=== PATIENT | female | born 1945 | race Caucasian/White ===

== ENCOUNTER 2017-06-13 04:42 | Inpatient (IN) | payer OTHER ==
[2017-05-16 13:52] VITALS: BMI 34.0
--- NOTE | 2017-05-16 14:25 | PAT Medication Instructions ---
Service Date May 16, 2017. Current Home Medication List Aspirin (Aspir-81), 1 TAB PO QAM B-Complex W/ Folic Acid (B Complex), 1 TAB PO QAM Biotin (Biotin), 1 CAP PO DAILY PRN for PRN Cholecalciferol (Vitamin D3), 1 TAB PO HS Citalopram Hydrobromide (Celexa), 1 TAB PO QAM Multivitamin (Multivitamin), 1 TAB PO HS Potassium Chloride (Micro-K Ext Rel), 10 MEQ PO HS Pravastatin (Pravachol ), 20 MG PO QPM Tramadol (Ultram), 50 MG PO Q6H PRN for Pain Trazodone Hcl (Trazodone), 100 MG PO HS Medication Instructions For Your Scheduled Surgery - Hold the following medications the morning of surgery: B-Complex W/ Folic Acid (B Complex), 1 TAB PO QAM Biotin (Biotin), 1 CAP PO DAILY PRN for PRN Citalopram Hydrobromide (Celexa), 1 TAB PO QAM - Take the following medications the morning of surgery with a sip of water: Aspirin (Aspir-81), 1 TAB PO QAM Tramadol (Ultram), 50 MG PO Q6H PRN for Pain (okay to take up to 4 hours prior to surgery if needed) - Take the following medications as scheduled the night before surgery: Trazodone Hcl (Trazodone), 100 MG PO HS Pravastatin (Pravachol ), 20 MG PO QPM Tramadol (Ultram), 50 MG PO Q6H PRN for Pain (if needed) Multivitamin (Multivitamin), 1 TAB PO HS Potassium Chloride (Micro-K Ext Rel), 10 MEQ PO HS Cholecalciferol (Vitamin D3), 1 TAB PO HS If you have any questions please call us at [phone] or [phone] or [phone]
[2017-05-16 14:55] LABS: BASO % 0.4 %; BASO ABS # 0.02 K/uL (0-0.2); EOS ABS # 0.22 K/uL (0-0.5); HEMATOCRIT 40.6 % (37-47); HEMOGLOBIN 13.8 g/dL (12.0-16.0); LYMPH % 31.2 %; LYMPH ABS # 1.73 K/uL (1.2-3.4); MEAN CELL VOLUME 87.3 fL (80-100); MEAN CORPUSCULAR HEMOGLOBIN 29.7 pg (25-34); MEAN PLATELET VOLUME 10.3 fL (7.4-10.4); MONO % 6.3 %; MONO ABS # 0.35 K/uL (0.11-0.59); NEUT % 58.1 %; NEUT ABS # 3.22 K/uL (1.4-6.5); PLATELET COUNT 223 K/uL (130-400); RED CELL DISTRIBUTION WIDTH CV 12.8 % (11.5-14.5); RED CELL DISTRIBUTION WIDTH SD 40.9 fL (36.4-46.3); WHITE BLOOD COUNT 5.54 K/uL (4.8-10.8)
[2017-05-16 15:04] LABS: PTT PATIENT 23.3 SECONDS (21.0-31.0)
--- NOTE | 2017-05-16 15:08 | DIAGNOSTIC IMAGING REPORT ---
CHEST 2 VIEWS ROUTINE CLINICAL HISTORY: Preoperative chest COMPARISON STUDY: No previous studies for comparison. FINDINGS: The cardiac and mediastinal contours are normal. There is no evidence of focal pulmonary consolidation. There is no evidence of failure. No pleural effusions are visualized.[ IMPRESSION: No active disease in the chest. Electronically signed by: Artie Rodriguez M.D. 05/16/2017 3:06 PM Dictated Date/Time: 05/16/2017 3:06 PM
[2017-05-16 16:54] LABS: ALBUMIN 3.6 gm/dl (3.4-5.0); CALCIUM 8.8 mg/dl (8.5-10.1); CREATININE 0.73 mg/dl (0.60-1.20); POTASSIUM 3.8 mmol/L (3.5-5.1)
--- NOTE | 2017-05-18 13:46 | HISTORY & PHYSICAL EXAMINATION ---
DATE OF ADMISSION: 06/13/2017 CHIEF COMPLAINT: Left knee pain. HISTORY OF PRESENT ILLNESS: Ethel is a 71-year-old female with a 3-year history of left knee pain. The patient rates her pain at 9/10. She has pain with her daily activities. She has limited standing and walking tolerance. Pain is worse with weightbearing. The patient has had injections, exercise program and tramadol and knee arthroscopy without relief. She has failed conservative treatment and is scheduled for a left knee replacement. PAST MEDICAL HISTORY: Hypercholesterolemia. She denies heart disease, diabetes or DVT. PAST SURGICAL HISTORY: Tubal ligation, left breast biopsy, knee arthroscopy, bladder sling, rotator cuff repair, right breast biopsy, cataract extraction and radiofrequency ablation. SOCIAL HISTORY: The patient denies alcohol or tobacco use. She quit smoking in 2004. She lives in a 1-story home. She is and retired. FAMILY HISTORY: Positive for DVT in her sister. MEDICATIONS: Citalopram 40 mg, pravastatin 20 mg, trazodone 100 mg, tramadol 50 mg, aspirin 81 mg, potassium, vitamin D 2000 units, super B complex 1 daily, vitamin, and Biotin 1000 mg. ALLERGIES: None. REVIEW OF SYSTEMS: See HPI. Ten other systems reviewed, all negative. PHYSICAL EXAMINATION: VITAL SIGNS: Height 5 feet 6 inches and weight 202 pounds. GENERAL: This is a well-developed and well-nourished female who is alert and oriented x3. Mood and affect are appropriate. HEENT: Normocephalic and atraumatic. Mucous membranes are moist and intact. NECK: Supple without lymphadenopathy. HEART: Regular rate and rhythm without murmurs, rubs or gallops. LUNGS: Clear to auscultation. She does have some mild wheezing bilaterally. ABDOMEN: Soft and nontender. Bowel sounds are equal and active. EXTREMITIES: No ecchymosis, redness or warmth. She has scars present from her arthroscopy. She has neutral alignment. Range of motion is from 0-120 degrees with +1 laxity. She has no edema. She is neurovascularly intact. X-RAY EXAMINATION: AP and lateral views show joint space narrowing and osteophyte formation. IMPRESSION: Degenerative joint disease, left knee. PLAN: The patient will be admitted for a left total knee arthroplasty. She was instructed to stop her Aleve 7 days preoperatively. We will plan on aspirin for DVT prophylaxis.
[~2017-06-13] VITALS: Ht 165.1 cm; Wt 92.9 kg
[2017-06-13] VITALS (10 sets, daily range): BP systolic 102–160; BP diastolic 66–78; PULSE 20–95; TEMP 36.3–36.9; O2SAT 94–98; Ht 165.1 cm; Wt 92.9 kg
[~2017-06-13 04:42] MED LIST: ASPI-232 PO; B-COTAB53 PO; BIOT1CAP8 PO; CHOL20007 PO; CITA40TA12 PO; MULT-506 PO; POTA10CA28 PO; PRAV20TA PO; TRAM-10 PO; TRAZ100T29 PO
[2017-06-13] MEDS ORDERED: LACTATED RINGER'S 1000ML IV SCH (06:00)
[2017-06-13] MEDS ORDERED: LACTATED RINGER'S 1000ML 500 ML IV SCH (06:00)
[2017-06-13] MEDS ORDERED: CeleBREX 200 MG CAP PO SCH (06:00)
[2017-06-13] MEDS ORDERED: DEXAMETHASONE 4 MG TAB PO SCH (06:00)
[2017-06-13] MEDS ORDERED: CEFAZOLIN 2000MG IV PUSH 10 ML IV SCH (06:00)
[2017-06-13] MEDS ORDERED: ROPIVACAINE 5MG/ML 30 ML 150 MG, BUPIVACAINE 0.5% MPF INJ 30 ML, EpINEphrine HCL INJ 0.... INFIL SCH ×15 (06:00)
[2017-06-13] MEDS ORDERED: METOCLOPRAMIDE HCL 10 MG TAB PO SCH (06:00)
[2017-06-13] MEDS ORDERED: LACTATED RINGER'S 1000ML 1,000 ML IV SCH ×2 (06:00)
[2017-06-13] MEDS ORDERED: TRANEXAMIC ACID INJ 1,000 MG in SYRINGE 0 ML IV SCH (06:00)
[2017-06-13] MEDS ORDERED: ACETAMINOPHEN 500 MG TAB PO SCH (06:00)
[2017-06-13] MEDS ORDERED: FAMOTIDINE 20 MG TAB PO SCH (06:00)
[2017-06-13] MEDS ORDERED: GABAPENTIN 300 MG CAP PO SCH (06:00)
[2017-06-13] MEDS ORDERED: BUPIVACAINE 0.5 % 5 MG/1 ML PF 10ML VIAL ONE (06:04)
[2017-06-13] MEDS ORDERED: BUPIVACAINE 0.25% 30 ML VIAL ONE (06:04)
[2017-06-13] MEDS ORDERED: BACITRACIN 50000 UNIT VIAL ONE (06:30)
[2017-06-13] MEDS ORDERED: ORTHO JOINT ANESTHETIC ONE (06:30)
[2017-06-13] MEDS ORDERED: POVIDONE-IODINE OP SOLN 30 ML BTL ONE (06:30)
[2017-06-13] MEDS ORDERED: FENTANYL CITRATE INJ 50 MCG/1 ML 2 ML VIAL ONE (06:44)
[2017-06-13] MEDS ORDERED: MIDAZOLAM HCL 1 MG/ML 2ML VIAL ONE (06:44)
--- NOTE | 2017-06-13 06:55 | History & Physical Bridge Note ---
H&P Re-Evaluation Bridge Note: I have examined the patient, reviewed the History & Physical and in the interval since the performance of the History & Physical I have noted the following changes of clinical significance: No changes noted
[2017-06-13] MEDS ORDERED: ZOLPIDEM TARTRATE 5 MG TAB PO PRN (07:00)
[2017-06-13] MEDS ORDERED: CEFAZOLIN IV 2,000 MG in DEXTROSE 5% 50ML 50 ML IV SCH (07:00)
[2017-06-13] MEDS ORDERED: BISACODYL 10 MG SUPP PR PRN (07:00)
[2017-06-13] MEDS ORDERED: ALUMINUM/MAGNESIUM/SIMETH (MAALOX MAX) 30 ML UDC PO PRN (07:00)
[2017-06-13] MEDS ORDERED: TRAMADOL HCL 50 MG TAB PO PRN (07:00)
[2017-06-13] MEDS ORDERED: NON-FORMULARY MEDICATION (Biotin 1 CAP) PO PRN (07:00)
[2017-06-13] MEDS ORDERED: SOD PHOSPHATE/SOD BIPHOSPHATE ENEMA 132 ML BTL PR PRN (07:00)
[2017-06-13] MEDS ORDERED: ONDANSETRON INJ 2 MG/ML 2 ML VIAL IV PRN ×2 (07:00→07:45)
[2017-06-13] MEDS ORDERED: MAGNESIUM HYDROXIDE SUSP 30 ML UDC PO PRN (07:00)
[2017-06-13] MEDS ORDERED: MoRPHine SULFATE 2 MG/ML CARP IV PRN (07:00)
[2017-06-13] MEDS ORDERED: DEXAMETHASONE SOD INJ 4 MG/ML VIAL ONE (07:40)
[2017-06-13] MEDS ORDERED: ROCURONIUM BROMIDE 10 MG/ML 5 ML VIAL IV ONE (07:40)
[2017-06-13] MEDS ORDERED: ONDANSETRON INJ 2 MG/ML 2 ML VIAL ONE (07:40)
[2017-06-13] MEDS ORDERED: PROPOFOL IV EMULSION 10 MG/ML 20 ML VIAL IV ONE (07:40)
[2017-06-13] MEDS ORDERED: LIDOCAINE HCL 2% 2 ML VIAL (20MG/ML) ONE (07:40)
[2017-06-13] MEDS ORDERED: NEOSTIGMINE METHYLSULFATE 5 MG/5 ML SYR ONE (07:41)
[2017-06-13] MEDS ORDERED: GLYCOPYRROLATE INJ 0.2 MG/ML VIAL ONE (07:41)
[2017-06-13] MEDS ORDERED: HYDROmorphone INJ 2 MG/ML SYR/VIAL ONE (07:42)
[2017-06-13] MEDS ORDERED: FENTANYL CITRATE INJ 50 MCG/1 ML 2 ML VIAL IV PRN (07:45)
[2017-06-13] MEDS ORDERED: PROMETHAZINE HCL INJ 12.5 MG in SODIUM CHLORIDE 0.9% 50ML 50 ML IV PRN (07:45)
[2017-06-13] MEDS ORDERED: HYDROmorphone INJ 1 MG/ML SYR IV PRN (07:45)
[2017-06-13] MEDS ORDERED: EpHEDrine SULFATE INJ 50 MG/ML AMP IV PRN (07:45)
[2017-06-13] MEDS ORDERED: ATROPINE SULFATE 0.1 MG/ML 5ML SYR IV PRN (07:45)
[2017-06-13] MEDS ORDERED: [UNRECOGNIZED DRUG - REMARK] SCH (08:00)
[2017-06-13] MEDS ORDERED: [UNRECOGNIZED DRUG - REMARK] SCH (08:00)
[2017-06-13] MEDS ORDERED: MoRPHine SULFATE 10 MG/ML CARP/VIAL IV PRN (08:15)
[2017-06-13] MEDS ORDERED: MoRPHine SULFATE 4 MG/ML 1 ML CARP\\VIAL IV PRN (08:15)
--- NOTE | 2017-06-13 08:16 | [facility] Operative Report ---
Operative Report Operative Date Jun 13, 2017. Pre-Operative Diagnosis Left Knee Degenerative Joint Disease Post-Operative Diagnosis Left Knee Degenerative Joint Disease Procedure(s) Performed Left Total Knee Arthroplasty utilizing [place] [employer] Nep[employer] journey 2 patient matched total knee arthroplasty size 5 femur 3 tibia 12 Gege [address] 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 with varus alignment on the bone changes subchondral cystic changes osteophytes marginal osteophytes sclerosis Specimens Permanent Solution: A.) Left Knee Bone and Tissue Complication(s) None Disposition Recovery Room / PACU Indications Patient presented failing attempts at conservative management including physical therapy anti-inflammatories relative rest injections activity modification patient subchondral cystic changes sclerosus osteophytes failed management of conservative nature presents for total knee arthroplasty Description of Procedure After proper prepping and draping of the left lower extremity anterior midline incision was made over the region of the extensor extensor mechanism after meticulous hemostasis was obtained and maintained in subcutaneous tissues a medial parapatellar incision was made The patella was subluxed lateralward the medial lateral gutter were cleaned from any hypertrophic synovitis and scar tissue of the distal femoral block was placed and the distal femoral osteotomy cut was made subsequently the chamfers anterior and posterior osteotomy cuts were made utilizing the 4-in-1 block the tibia was subsequently subluxed anteriorward medial and ateral meniscal remnants were excised in their entirety remnants of the anterior and posterior cruciate ligaments were excised in their entirety excellent exposure of the proximal tibia was obtained the tibial osteotomy guide was placed on the proximal tibial osteotomy cut was made once again the knee was irrigated with copious amounts of sterile saline solution the patella was subsequently everted lateralward thickened scar tissue around the patella was removed the patella was subsequently cut utilizing a freehand technique and was drilled prepared for final preparation and placement of patella socially flexion-extension gaps were checked and the equal and symmetric trials were placed to the appropriate femoral and tibial trials with poly-spacer being placed for equal flexion and extension gaps and full range of motion including extension to 0 and flexion to 140 the trial components after having been taken to recovery range of motion was subsequently removed meticulous hemostasis was obtained and maintained subsequently a knee block injection of joint cocktail including ropivacaine 0.5% 150 mg. Bupivacaine 0.5 % epinephrine 1-200,030 mL's toradol 30 mg dexamethasone 4 mg ketamine 10 mg clonidine 100 micrograms normal saline solution 30 mg was infiltrated into the soft tissues of the posterior knee medial lateral gutters and periosteal synovium special attention was paid to protect neurovascular structures at all times subsequently trial components having been removed the knee was irrigated with sterile saline solution. debris was removed the proximal tibia was subsequently prepared and was made ready for the placement of the tibial component tibial component was also cemented and tamped into position the femoral component was subsequently placed and cemented in the position the patellar component was subsequently cemented in position because hemostasis once again obtained and maintained wound having been thoroughly irrigated with debridement and debridement lavage was performed as well as a medial parapatellar incision closed with #1 Vicryl in interrupted fashion subcutaneous was closed with #2 Vicryl skin was closed with skin clips. PA-C was necessary for prepping and drapping as well as wound closure of deep fascia Sub cutaneous tissue and skin and was necessary for the case. A sterile compressive dressing was placed patient was taken to recovery in stable condition of report dictated by Rikki I attest to the content of the Intraoperative Record and any orders documented therein. Any exceptions are noted below. I attest to the content of the Intraoperative Record and any orders documented therein. Any exceptions are noted below.
--- NOTE | 2017-06-13 09:31 | DIAGNOSTIC IMAGING REPORT ---
L KNEE 1 OR 2 VIEWS ROUTINE CLINICAL HISTORY: AP/LATERAL IN PACU LEFT KNEE COMPARISON: None. DISCUSSION: Anatomic alignment status post total left knee arthroplasty. Good contact between prosthetic and underlying bone. Surgical drains are in position. Expected soft tissue postoperative change IMPRESSION: Anatomic alignment status post total left knee arthroplasty The above report was generated using voice recognition software. It may contain grammatical, syntax or spelling errors. Electronically signed by: Emir Pringle M.D. 06/13/2017 9:29 AM Dictated Date/Time: 06/13/2017 9:29 AM
--- NOTE | 2017-06-13 09:53 | Anesthesiology Progress Note ---
Anesthesia Post Op Note Date & Time Jun 13, 2017 at 09:50 Vital Signs Pain Intensity: 0 Vital Signs Past 12 Hours Date Time Temp Pulse Resp B/P (MAP) Pulse Ox O2 Delivery O2 Flow Rate FiO2 06/13/17 09:35 36.5 89 12 102/66 92 Nasal Cannula 4 06/13/17 09:25 91 12 125/62 93 Nasal Cannula 4 06/13/17 09:15 93 12 126/61 93 Oxymask 10 06/13/17 09:05 94 12 127/66 92 Oxymask 10 06/13/17 08:56 36.6 92 12 160/70 93 Oxymask 10 06/13/17 05:41 36.8 20 20 160/78 97 Room Air Notes Mental Status: alert / awake / arousable, participated in evaluation Pt Amnestic to Procedure: Yes Nausea / Vomiting: adequately controlled Pain: adequately controlled Airway Patency, RR, SpO2: stable & adequate BP & HR: stable & adequate Hydration State: stable & adequate Anesthetic Complications: no major complications apparent Anesthetic Complications: patient with short period of desaturation in PACU and requiring 4LPM on discharge from PACU. Therefore, order placed for continuous pulse oximetry on floor.
[2017-06-13] MEDS: CITALOPRAM 40 MG TAB PO SCH (10:50)
[2017-06-13] MEDS: D5W AND 1/2NSS + 20MEQ KCL 1,000 ML IV SCH ×2 (11:01→20:45)
[2017-06-13] MEDS: ACETAMINOPHEN 500 MG TAB PO SCH ×2 (13:36→21:51)
[2017-06-13] MEDS: CEFAZOLIN IV 2,000 MG in SYRINGE 0 ML IV SCH (17:53)
[2017-06-13] MEDS: TRAZODONE HCL 100 MG TAB PO SCH (20:45)
[2017-06-13] MEDS: PRAVASTATIN SOD 20 MG TAB PO SCH (20:45)
[2017-06-13] MEDS: DOCUSATE SODIUM 100 MG CAP PO SCH (20:45)
[2017-06-13] MEDS: SENNA 8.6 MG TAB PO SCH (20:45)
[2017-06-13] MEDS: CHOLECALCIFEROL 1000 INTER.UNIT TAB PO SCH (20:46)
[2017-06-13] MEDS: ASPIRIN 81 MG ECTAB PO SCH (20:46)
[2017-06-13] MEDS: POTASSIUM CHLORIDE 10 MEQ TABCR PO SCH (20:46)
[2017-06-13] MEDS: OXYCODONE HCL IR 5 MG TAB (IMMEDIATE RELEASE) PO PRN (20:47)
[2017-06-14] MEDS: CEFAZOLIN IV 2,000 MG in SYRINGE 0 ML IV SCH (02:14)
[2017-06-14] MEDS: OXYCODONE HCL IR 5 MG TAB (IMMEDIATE RELEASE) PO PRN ×6 (03:00→23:57)
[2017-06-14 04:00] VITALS: BP 127/68; PULSE 82; TEMP 36.5; O2SAT 94
[2017-06-14] MEDS: ACETAMINOPHEN 500 MG TAB PO SCH ×3 (05:15→21:32)
[2017-06-14 05:42] LABS: HEMOGLOBIN 12.2 g/dL (12.0-16.0); MEAN CORPUSCULAR HEMOGLOBIN 29.8 pg (25-34); MEAN CORPUSCULAR HGB CONC 33.9 g/dl (32-36); MEAN PLATELET VOLUME 10.1 fL (7.4-10.4); PLATELET COUNT 243 K/uL (130-400); RED CELL DISTRIBUTION WIDTH CV 12.6 % (11.5-14.5); RED CELL DISTRIBUTION WIDTH SD 40.7 fL (36.4-46.3); WHITE BLOOD COUNT 11.97 K/uL (4.8-10.8)
[2017-06-14] MEDS: D5W AND 1/2NSS + 20MEQ KCL 1,000 ML IV SCH (05:59)
[2017-06-14 06:18] LABS: CALCIUM 8.2 mg/dl (8.5-10.1); CREATININE 0.66 mg/dl (0.60-1.20); POTASSIUM 4.2 mmol/L (3.5-5.1)
[2017-06-14 07:14] VITALS: BP 129/67; PULSE 69; TEMP 36.7; O2SAT 96
--- NOTE | 2017-06-14 08:03 | Orthopedic Progress Note ---
Orthopedic Progress Note Date of Service Jun 14, 2017. Subjective Post OP Day: 1 Reports: feeling well, Denies: chest pain, SOB, nausea / vomiting, light headedness, calf pain Objective calves soft nontender, N/V intact, capillary refill less than 2 sec., dressing C /D/I, A&O x3, toes mobile, hemovac drainage (150/200 cc per shift) Date Time Temp Pulse Resp B/P (MAP) Pulse Ox O2 Delivery O2 Flow Rate FiO2 06/14/17 07:14 36.7 69 17 129/67 (87) 96 Room Air 06/14/17 04:00 36.5 82 16 127/68 (87) 94 Room Air 06/14/17 00:40 Room Air 06/13/17 22:55 36.5 90 20 121/74 (90) 95 Room Air 06/13/17 19:02 36.9 91 18 120/74 (89) 94 Room Air 06/13/17 17:57 98 Room Air 06/13/17 15:25 36.5 85 18 119/69 (86) 96 Nasal Cannula 2.0 06/13/17 15:15 Nasal Cannula 2.0 06/13/17 13:04 36.4 95 19 105/66 (79) 97 Nasal Cannula 4.0 06/13/17 11:57 78 17 102/66 (78) 97 Nasal Cannula 4.0 06/13/17 10:56 36.3 83 16 121/70 (87) 97 Nasal Cannula 4.0 06/13/17 10:29 36.3 84 16 113/70 (84) 97 Nasal Cannula 4.0 06/13/17 10:00 36.6 86 16 118/70 (86) 95 Nasal Cannula 4.0 06/13/17 10:00 95 Nasal Cannula 4.0 06/13/17 10:00 Nasal Cannula 4.0 06/13/17 09:45 90 12 108/62 93 Nasal Cannula 4 06/13/17 09:35 36.5 89 12 102/66 92 Nasal Cannula 4 06/13/17 09:25 91 12 125/62 93 Nasal Cannula 4 06/13/17 09:15 93 12 126/61 93 Oxymask 10 06/13/17 09:05 94 12 127/66 92 Oxymask 10 06/13/17 08:56 36.6 92 12 160/70 93 Oxymask 10 Laboratory Results 24 Hours: Test 06/14/17 05:15 Hematocrit 36.0 % Hemoglobin 12.2 g/dL Prothromb Time International Ratio 1.0 Prothrombin Time 10.5 SECONDS Assessment & Plan Assessment: POD#1 sp left TKA Plan: PT/OT DVT Proph- ASA 81mg bid Pain management- Oxy, Tylenol DC planning- Home with home PT, likely Sunday Inhouse Planning Pain Management: PO Tylenol, Oxy IR DVT Prophylaxis: TEDs, SCDs, ASA
[2017-06-14] MEDS: CITALOPRAM 40 MG TAB PO SCH (08:37)
[2017-06-14] MEDS: ASPIRIN 81 MG ECTAB PO SCH ×2 (08:38→20:07)
[2017-06-14] MEDS: DOCUSATE SODIUM 100 MG CAP PO SCH ×2 (08:38→20:07)
[2017-06-14] MEDS: VITAMIN B COMPLEX TAB PO SCH (08:38)
[2017-06-14] MEDS: MULTIVITAMIN TAB PO SCH (08:38)
[2017-06-14] MEDS: PANTOprazole SOD 40 MG TAB PO SCH (08:38)
--- NOTE | 2017-06-14 08:45 | Anesthesiology Progress Note ---
Anesthesia Post Op Note Date & Time Jun 14, 2017 at 08:45 Vital Signs Pain Intensity: 4.0 Vital Signs Past 12 Hours Date Time Temp Pulse Resp B/P (MAP) Pulse Ox O2 Delivery O2 Flow Rate FiO2 06/14/17 07:14 36.7 69 17 129/67 (87) 96 Room Air 06/14/17 04:00 36.5 82 16 127/68 (87) 94 Room Air 06/14/17 00:40 Room Air 06/13/17 22:55 36.5 90 20 121/74 (90) 95 Room Air Notes Mental Status: alert / awake / arousable, participated in evaluation Pt Amnestic to Procedure: Yes Nausea / Vomiting: adequately controlled Pain: adequately controlled Airway Patency, RR, SpO2: stable & adequate BP & HR: stable & adequate Hydration State: stable & adequate Anesthetic Complications: no major complications apparent
[2017-06-14 14:56] VITALS: BP 120/69; PULSE 75; TEMP 36.8; O2SAT 96
--- NOTE | 2017-06-14 16:33 | Discharge Instructions ---
Discharge Instructions Date of Service Jun 14, 2017. Admission Reason for Admission: Left Knee Osteoarthritisi Discharge Discharge Diagnosis / Problem: left total knee replacement Discharge Goals Goal(s): Decrease discomfort, Improve function, Increase independence Activity Recommendations Activity Limitations: as noted below Weightbearing Status: Left weightbearing (as tolerated) . Instructions / Follow-Up Instructions / Follow-Up ACTIVITY RECOMMENDATIONS: SELF CARE INSTRUCTIONS AFTER TOTAL KNEE REPLACEMENT A. You may need to continue a physical therapy program after discharge from the hospital. There are several options available to you. Your doctor will assist you in selecting the best one for you. 1. An out-patient facility 2 to 3 times a week for therapy or home therapy. 2. Continue working on all exercises taught to you in the hospital. Your goals should be to increase bending of your knee to 90 degrees and beyond and to fully straighten your knee. B. You may progress at your own pace from walking with a walker or crutches to a cane; then to no assistive devices. C. Make walking a part of your daily routine. Be up as much as comfortable with rest periods throughout the day. Rest with leg elevation is very important. Use the ice wrap frequently for the first 3-4 weeks. D. There are no restrictions on activities. You may ride in a car, shop, participate in gaming commissioner and all social activities. E. Wear the long elastic stockings (ZUHAIR hose) 20 hours a day for 2 weeks after surgery. They can be removed several times a day for laundering and for a bath. F. You may shower, no tub baths until cleared by your doctor. SPECIAL CARE INSTRUCTIONS: VERY IMPORTANT TO READ AND REVIEW A. There are a few signs you need to watch for after you are home. Call [facility] if you notice any of the followin. Increased severe knee pain. Some pain is expected especially when you exercise. 2. Increased swelling in your leg or knee; pain or swelling of the calf muscle in either lower leg. 3. Any fluid drainage from the incision. 4. Shortness of breath or chest pain. B. Please call [facility] at if you have any concerns or questions about your operation or recovery. The doctor or his nurse will return your call promptly. C. You must take antibiotics before dental work, bladder, bowel or other surgery. Your doctor will provide you with a permanent care to carry describing this precaution. IMPORTANT: * REMEMBER TO TAKE ASPIRIN, 81 MG, TWICE DAILY FOR 4 WEEKS UNLESS OTHERWISE DIRECTED. THIS IS YOUR BLOOD THINNER. * HIGH RISK PATIENTS MAY BE PRESCRIBED A STRONGER BLOOD THINNER. THIS WILL BE PROVIDED AT DISCHARGE. * CALL IF INCREASED PAIN, REDNESS, DRAINAGE OR FEVER GREATER THAT 101. * WEAR ZUHAIR HOSE 20 HOURS PER DAY FOR 2 WEEKS. * DERMABOND Prineo- This is a mesh tape dressing that is covered with glue. It should remain in place until the incision is properly healed, usually 10-14 days. This dressing is designed to naturally slough off. You may trim the excess mesh tape as it peels off. Incision may be briefly wet in a shower. Dry immediately by blotting with a clean, dry towel. Do not bath or swim until instructed by your doctor. Do not scratch, rub, or pick at the dressing. Do not apply any topical ointments or lotions until dressing is completely removed and/or instructed by your doctor. There may be a small piece of suture material at one end of your incision. Do not pull or trim this. If it is bothersome or catching on clothing, you may cover it with a band-aid. FOLLOW UP VISIT: If appointment is not already scheduled: Please call [facility] to make a follow-up appointment for 2 weeks after your surgery at . Current Hospital Diet Patient's current hospital diet: Regular Diet Discharge Diet Recommended Diet: Regular Diet Procedures Procedures Performed: Left Total Knee Arthroplasty utilizing [place] [employer] [place] journey 2 patient matched total knee arthroplasty size 5 femur 3 tibia 12 Gege 32 oval patella Pending Studies Studies pending at discharge: no Laboratory Results Hemoglobin A1c Test 05/16/17 14:30 Range/Units Estimated Average Glucose 97 mg/dl Hemoglobin A1c 5.0 4.5-5.6 % Medical Emergencies . Who to Call and When: Medical Emergencies: If at any time you feel your situation is an emergency, please call 911 immediately. . Non-Emergent Contact Non-Emergency issues call your: Primary Care Provider, Surgeon . "Provider Documentation" section prepared by Emir Ngo. . VTE Core Measure Inpt VTE Proph given/why not?: Other Anticoagulation (ASA 81mg po bid x 1 month ), [employer], SCD's [place] Drug Monitoring Program Search Results: patient reviewed within database, no issues identified
[2017-06-14] MEDS: SENNA 8.6 MG TAB PO SCH (20:06)
[2017-06-14] MEDS: CHOLECALCIFEROL 1000 INTER.UNIT TAB PO SCH (20:07)
[2017-06-14] MEDS: POTASSIUM CHLORIDE 10 MEQ TABCR PO SCH (20:07)
[2017-06-14] MEDS: TRAZODONE HCL 100 MG TAB PO SCH (20:07)
[2017-06-14] MEDS: PRAVASTATIN SOD 20 MG TAB PO SCH (21:32)
[2017-06-14 23:29] VITALS: BP_SYST 150; BP_SYST 166; BP_DIAS 75; BP_DIAS 90; PULSE 84; TEMP 36.9; O2SAT 95
[2017-06-15] MEDS: OXYCODONE HCL IR 5 MG TAB (IMMEDIATE RELEASE) PO PRN ×2 (05:54→10:27)
[2017-06-15] MEDS: ACETAMINOPHEN 500 MG TAB PO SCH (05:54)
--- NOTE | 2017-06-15 07:01 | Orthopedic Progress Note ---
Orthopedic Progress Note Date of Service Jun 15, 2017. Subjective Post OP Day: 2 Reports: feeling well, pain controlled w PO medications, Denies: complaints, chest pain, SOB, nausea / vomiting, light headedness, calf pain Objective calves soft nontender, N/V intact, capillary refill less than 2 sec., incision C /D/I, A&O x3, toes mobile Date Time Temp Pulse Resp B/P (MAP) Pulse Ox O2 Delivery O2 Flow Rate FiO2 06/15/17 00:05 Room Air 06/14/17 23:29 36.9 84 18 150/75 (100) 95 Room Air 06/14/17 15:30 Room Air 06/14/17 14:56 36.8 75 18 120/69 (86) 96 Room Air 06/14/17 07:50 Room Air 06/14/17 07:14 36.7 69 17 129/67 (87) 96 Room Air Assessment & Plan Assessment: POD#2 sp left TKA Plan: PT/OT DVT Proph- ASA 81mg bid Pain management- Oxy, Tylenol DC planning- Home with home PT, d/c after PT today Discharge Planning Discharge Planning: home with home health DVT Prophylaxis: TEDs, SCDs, ASA Therapy: Physical Therapy
[2017-06-15] MEDS ORDERED: ULT50X PO (07:09)
[2017-06-15] MEDS ORDERED: RXC5 PO (07:09)
[2017-06-15] MEDS ORDERED: CLC100 PO (07:09)
[2017-06-15] MEDS ORDERED: ACET-24 PO (07:09)
[2017-06-15] MEDS ORDERED: ASPEC81 PO (07:09)
[2017-06-15] MEDS ORDERED: ONDA8TAB6 PO (07:09)
[2017-06-15 08:14] VITALS: BP 128/70; PULSE 84; TEMP 36.5; O2SAT 95
--- NOTE | 2017-06-15 08:25 | Discharge Summary ---
Orthopedic Discharge Summary Admission Date/Reason Jun 13, 2017 at 06:35 Left Knee Osteoarthritisi. Discharge Date/Disposition Jun 15, 2017 Home with services Diagnosis Principal Diagnosis: left knee arthritis Procedure(s) Performed Left Total Knee Arthroplasty utilizing [place] [employer] 2 patient matched total knee arthroplasty size 5 femur 3 tibia 12 Gege 32 oval patella Consultations NONE Medication Reconciliation New Medications: Ondansetron Hcl (Zofran) 8 Mg Tab 8 MG PO Q6 PRN for Nausea, #20 TAB Acetaminophen (Sb Non-Aspirin Extra Stre) 500 Mg Tab 1000 MG PO Q8H, #60 TAB Aspirin (Aspirin EC Low Dose) 81 Mg Ectab 81 MG PO BID for 30 Days, #60 TAB Docusate Sodium (Docusate Sodium) 100 Mg Cap 100 MG PO BID, #20 CAP Oxycodone HCl (Oxycodone HCl) 5 Mg Tab 5-10 MG PO Q4H PRN for Pain, #60 TAB Tramadol HCl (Tramadol HCl) 50 Mg Tab 50-100 MG PO Q4H PRN for Pain, #60 TAB Continued Medications: B-Complex W/ Folic Acid (B Complex) 1 Tab Tab 1 TAB PO QAM Biotin (Biotin) 1 Mg Cap 1 CAP PO DAILY PRN for PRN Cholecalciferol (Vitamin D3) 2,000 Unit Tab 1 TAB PO HS for 90 Days, TAB 3 Refills Citalopram Hydrobromide (Celexa) 40 Mg Tab 1 TAB PO QAM for 30 Days, #30 TAB 1 Refill Multivitamin (Multivitamin) Tab 1 TAB PO HS, TAB Potassium Chloride (Micro-K Ext Rel) 10 Meq Capcr 10 MEQ PO HS, CAP Pravastatin (Pravachol ) 20 Mg Tab 20 MG PO QPM, TAB Trazodone Hcl (Trazodone) 100 Mg Tab 100 MG PO HS, TAB Discontinued Medications: Aspirin (Aspir-81) 81 Mg Tab 1 TAB PO QAM for 30 Days, #30 TAB 5 Refills Tramadol (Ultram) 50 Mg Tab 50 MG PO Q6H PRN for Pain, TAB Admission Physical Exam As per Admitting History & Physical. Hospital Course Patient was a same day admission after undergoing a successful left TKA. she tolerated the procedure well. Post-operatively, her activity was progressed and well tolerated. Please refer to daily progress notes and PT notes for complete details. After exam on 06/15/17, patient felt to be stable for discharge home with HHPT. Patient will f/u in the office in 2 weeks for further evaluation including x-rays and incision check, sooner if having any issues or concerns. Below are pertinent labs/studies during their hospital stay: Last Resulted CBC 06/14/17 05:15 Last Resulted BMP 06/14/17 05:15 Last Vital Signs Documentation Date Time Temp Pulse Resp B/P (MAP) Pulse Ox O2 Delivery O2 Flow Rate FiO2 06/15/17 08:14 36.5 84 18 128/70 (89) 95 Room Air 06/13/17 15:25 2.0 Discharge Instructions ACTIVITY RECOMMENDATIONS: SELF CARE INSTRUCTIONS AFTER TOTAL KNEE REPLACEMENT A. You may need to continue a physical therapy program after discharge from the hospital. There are several options available to you. Your doctor will assist you in selecting the best one for you. 1. An out-patient facility 2 to 3 times a week for therapy or home therapy. 2. Continue working on all exercises taught to you in the hospital. Your goals should be to increase bending of your knee to 90 degrees and beyond and to fully straighten your knee. B. You may progress at your own pace from walking with a walker or crutches to a cane; then to no assistive devices. C. Make walking a part of your daily routine. Be up as much as comfortable with rest periods throughout the day. Rest with leg elevation is very important. Use the ice wrap frequently for the first 3-4 weeks. D. There are no restrictions on activities. You may ride in a car, shop, participate in honing job setter and all social activities. E. Wear the long elastic stockings (ZUHAIR hose) 20 hours a day for 2 weeks after surgery. They can be removed several times a day for laundering and for a bath. F. You may shower, no tub baths until cleared by your doctor. SPECIAL CARE INSTRUCTIONS: VERY IMPORTANT TO READ AND REVIEW A. There are a few signs you need to watch for after you are home. Call [facility] if you notice any of the followin. Increased severe knee pain. Some pain is expected especially when you exercise. 2. Increased swelling in your leg or knee; pain or swelling of the calf muscle in either lower leg. 3. Any fluid drainage from the incision. 4. Shortness of breath or chest pain. B. Please call [facility] at if you have any concerns or questions about your operation or recovery. The doctor or his nurse will return your call promptly. C. You must take antibiotics before dental work, bladder, bowel or other surgery. Your doctor will provide you with a permanent care to carry describing this precaution. IMPORTANT: * REMEMBER TO TAKE ASPIRIN, 81 MG, TWICE DAILY FOR 4 WEEKS UNLESS OTHERWISE DIRECTED. THIS IS YOUR BLOOD THINNER. * HIGH RISK PATIENTS MAY BE PRESCRIBED A STRONGER BLOOD THINNER. THIS WILL BE PROVIDED AT DISCHARGE. * CALL IF INCREASED PAIN, REDNESS, DRAINAGE OR FEVER GREATER THAT 101. * WEAR ZUHAIR HOSE 20 HOURS PER DAY FOR 2 WEEKS. * DERMABOND Prineo- This is a mesh tape dressing that is covered with glue. It should remain in place until the incision is properly healed, usually 10-14 days. This dressing is designed to naturally slough off. You may trim the excess mesh tape as it peels off. Incision may be briefly wet in a shower. Dry immediately by blotting with a clean, dry towel. Do not bath or swim until instructed by your doctor. Do not scratch, rub, or pick at the dressing. Do not apply any topical ointments or lotions until dressing is completely removed and/or instructed by your doctor. There may be a small piece of suture material at one end of your incision. Do not pull or trim this. If it is bothersome or catching on clothing, you may cover it with a band-aid. FOLLOW UP VISIT: If appointment is not already scheduled: Please call [facility] to make a follow-up appointment for 2 weeks after your surgery at .
[2017-06-15] MEDS: MULTIVITAMIN TAB PO SCH (08:37)
[2017-06-15] MEDS: CITALOPRAM 40 MG TAB PO SCH (08:37)
[2017-06-15] MEDS: DOCUSATE SODIUM 100 MG CAP PO SCH (08:37)
[2017-06-15] MEDS: VITAMIN B COMPLEX TAB PO SCH (08:37)
[2017-06-15] MEDS: ASPIRIN 81 MG ECTAB PO SCH (08:37)
[2017-06-15] MEDS: PANTOprazole SOD 40 MG TAB PO SCH (08:37)
[2017-06-15 09:46] VITALS: O2SAT 95
== END 2017-06-15 11:30 | disposition home health service (06) | DRG 470 ==
LOC: C.ACU 04:42 → C.3E 06:35 → ENRESERV 09:25
PROVIDERS: ADMIT Orthopaedic Surgery; ATTEND Orthopaedic Surgery
PROC: 0SRD0J9 Replacement of Left Knee Joint with Synthetic Substitute, Cemented, Open Approach (ICD-10-PCS; principal; 2017-06-13 07:00)
DX: M17.12 Unilateral primary osteoarthritis, left knee (principal); R09.02 Hypoxemia; E78.00 Pure hypercholesterolemia, unspecified; F32.9 Major depressive disorder, single episode, unspecified; E66.9 Obesity, unspecified; Z68.34 Body mass index [BMI] 34.0-34.9, adult; Z87.891 Personal history of nicotine dependence; Z79.82 Long term (current) use of aspirin; Z79.899 Other long term (current) drug therapy